=== PATIENT | male | born 1955 | race Caucasian/White ===

== ENCOUNTER → 2021-10-10 09:16 | Outpatient (BNVA) | payer MEDICARE, MEDICAID, SELFPAY | PROVIDERS: PCP Internal Medicine; Visit Provider Podiatrist Foot & Ankle Surgery | DX: L60.3 Nail dystrophy (principal); I73.9 Peripheral vascular disease, unspecified; E11.42 Type 2 diabetes mellitus with diabetic polyneuropathy | CPT/HCPCS: 11721 ==

== ENCOUNTER 2024-03-28 16:07 | Emergency (ER) | payer MEDICARE, MEDICAID, SELFPAY ==
--- NOTE | 2024-03-28 16:07 | ECG_ITS ---
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
[2024-03-28 16:08] VITALS: BP 100/67; PULSE 93; RESP 19; TEMP 36.8; O2SAT 95; BMI 25.1
--- NOTE | 2024-03-28 16:25 | CTR_ITS ---
PROCEDURE INFORMATION: Exam: CT Head Without Contrast Exam date and time: 03/28/2024 4:36 PM Age: 68 years old Clinical indication: Stroke-like symptoms; Altered mental status/memory loss; Additional info: Symptoms of acute stroke TECHNIQUE: Imaging protocol: Computed tomography of the head without contrast. Radiation optimization: All CT scans at this facility use at least one of these dose optimization techniques: automated exposure control; mA and/or kV adjustment per patient size (includes targeted exams where dose is matched to clinical indication); or iterative reconstruction. Other technique: STROKE PROTOCOL was implemented. COMPARISON: No relevant prior studies available. RADIATION DOSE METRICS: Total DLP (mGy-cm): 931.68 FINDINGS: Brain: No hemorrhage. No edema. Broad region of encephalomalacia in the right MCA distribution involving aspects of the right frontal, parietal, and temporal lobes. No mass effect. Cerebral ventricles: No ventriculomegaly. Paranasal sinuses: Visualized sinuses are unremarkable. No fluid levels. Mastoid air cells: Visualized mastoid air cells are well aerated. Bones: Unremarkable. No acute fracture. Soft tissues: Unremarkable. CT/CT head thrombolytic [id number] IMPRESSION: No acute intracranial abnormality. ASSESSMENT: ASPECTS ([place] Stroke Program Early CT Score) is 10.
--- NOTE | 2024-03-28 16:31 | ED_ITS ---
Documented by User: Richard Martini DO 03/31/24 06:21 HPI - Neuro Symptoms/Deficit 2 General: Chief Complaint: Neuro Symptoms/Deficit Stated Complaint: stroke like symptoms Time Seen by Provider: 03/28/24 16:25 History of Present Illness: 68-year-old male presents emergency room he has a known history of previous stroke. The severity did not stroke left him completely paralyzed the left side was some speech deficit and facial droop. This been present for about 6 to 7 years or better. Brought in by EMS from skilled nursing with a slight worsening of his speech per the skilled nursing although patient seems to downplay this patient states he does have a little bit more numbness in the left side of his face but Mili has some degree of numbness he felt it was worse over the last [address] [facility] [address] his last known well at 14 0052 hrs. prior to arrival. Patient states that the numbness of the left side of the lip and face began yesterday afternoon almost 24 hours ago. Associated symptoms: Deny chest pain Related Data Home Medications Medication Instructions Recorded Confirmed acetaminophen 325 mg tablet 650 mg PO Q4H PRN 06/16/19 10/10/21 (Tylenol) aspirin 81 mg tablet,delayed 81 mg PO ONCE 06/16/19 10/10/21 release atorvastatin 20 mg tablet 20 mg PO ONCE 06/16/19 10/10/21 calcium polycarbophil 625 mg 1,250 mg PO BID 06/16/19 10/10/21 tablet (Fiber Laxative (calcium polycarbophil)) fluticasone 250 mcg-salmeterol 50 1 inh inhalation BID 06/16/19 10/10/21 mcg/dose blistr powdr for inhalation (Advair Diskus) gabapentin 300 mg capsule 300 mg PO QAM 06/16/19 10/10/21 gabapentin 600 mg tablet 600 mg PO .hs 06/16/19 10/10/21 levetiracetam 750 mg tablet 750 mg PO BID 06/16/19 10/10/21 metformin 1,000 mg tablet,extended 1,000 mg PO BID 06/16/19 10/10/21 release 24hr (osmotic) metoprolol succinate 25 mg capsule 25 mg PO ONCE 06/16/19 10/10/21 sprinkle, ext. release 24 hr polyethylene glycol 3350 17 17 gm PO BID 06/16/19 10/10/21 gram/dose oral powder (Gavilax) trazodone 50 mg tablet 50 mg PO .at bedtime 06/16/19 10/10/21 venlafaxine 75 mg tablet 150 mg PO ONCE 06/16/19 10/10/21 Allergies Allergy/AdvReac Type Severity Reaction Status Date / Time latex Allergy ALGY-Rash Verified 10/10/21 09:22 Review of Systems 2 Const: Denies: fever(s) or chills Card: Denies: chest pain Resp: Denies: dyspnea GI: Denies: abdominal pain : Denies: dysuria, urinary frequency or urinary urgency Musc: Denies: neck pain or back pain Skin/Breast: Denies: rash PFSH ED 2 PFSH: Medical History Acquired spondylolisthesis Cervico-occipital neuralgia of right side COPD (chronic obstructive pulmonary disease) Gait instability History of stroke in adulthood Lumbar disc disease Onychocryptosis 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 PVD (peripheral vascular disease) Seizure disorder Surgical History H/O cataract extraction H/O total hip arthroplasty LEFT H/O total knee replacement BILATERAL S/P matrixectomy of toe Family History Father Dementia Denies family history of Diabetes CAD (coronary artery disease) Clotting disorder Hyperlipidemia Psychiatric illness Chronic kidney disease (CKD) Suicide Anesthesia complication Bleeding disorder Family history of premature coronary artery disease Lung disease Cancer Hypertension Stroke Social History Smoking and tobacco/nicotine status: never used tobacco/nicotine Alcohol intake: never Substance/Drug Use: never Current occupational status: unemployed NIH stroke score 2 NIHSS: Level Of Consciousness - 1a: 0 Level Of Consciousness Questions - 1b: Both Correct Level Of Consciousness Commands - 1c: Both Correct Best Gaze - 2: Normal Visual Vasquez - 3: No Visual Loss Facial Palsy - 4: N ormal (Changed from baseline with left-sided facial droop) Motor Arm Right - 5: No Drift Motor Arm Left - 5: No Drift (Patient paralyzed on the left side due to previous stroke from several years ago unchanged) Motor Leg Right - 6: No Drift Motor Leg Left - 6: No Drift (Patient paralyzed in the left leg with no effort against gravity unchanged) Limb Ataxia - 7: Absent (Present in the left side from previous stroke not on the right) Sensory - 8: Normal (Loss on the left versus the right side unchanged from baseline) Best Language - 9: No Aphasia Dysarthia - 10: Mild/Moderate Dysarthia Extinction And Inattention - 11: 0 (Difficult to assess because the density of the previous stroke) Score: Total Score: 1 Physical Exam 2 Const: COMMON NORMALS: no acute distress GENERAL APPEARANCE: cooperative and comfortable ORIENTATION/CONSCIOUSNESS: Yes awake, Yes oriented to person, Yes oriented to place and Yes oriented to time HENMT: COMMON NORMALS: normocephalic, atraumatic and hearing grossly normal bilaterally HEAD & SCALP: normocephalic and atraumatic Resp: COMMON NORMALS: normal respiratory effort, No retractions, No use of accessory muscles and clear to auscultation bilaterally AUSCULTATION: clear to auscultation bilaterally Cardio: COMMON NORMALS: regular rate, regular rhythm and No murmurs present (Cardio) RATE: regular rate RHYTHM: regular rhythm GI: COMMON NORMALS: Soft to palpation and No hepatosplenomegaly present A USCULTATION: Yes normoactive bowel sounds PALPATION: Yes Soft to palpation, No Tenderness to palpation present (GI), No Guarding due to palpation present (GI) and Yes No hepatosplenomegaly present Extremity: COMMON NORMALS: normal to inspection, capillary refill normal, no clubbing, cyanosis or edema, no calf tenderness and no pedal edema Neuro: SENSORIUM/ORIENTATION: Yes oriented to person, Yes oriented to place and Yes oriented to time Skin: COMMON NORMALS: no rashes or lesions noted GENERAL SKIN EXAM: no rashes or lesions noted Course 2 Vital Signs: Vital signs: Vital Signs Temperature 98.2 F 03/28/24 16:08 Pulse Rate 76 03/28/24 21:37 Respiratory Rate 19 H 03/28/24 16:08 Blood Pressure 147/76 03/28/24 21:37 Pulse Oximetry 92 03/28/24 21:37 Oxygen Delivery Me thod Room Air 03/28/24 20:14 MDM - Neuro Symptoms/Deficit Medical Decision Making NIH score of 1. Should be noted however there are comments in the NIH scoring that was done today when he arrived and I did not count any of his previous known deficits. We do not have a last known well time that is easily to confirm and establish. Confounded by the fact that he has had a previous very dense stroke. I have seen this patient in the past and family with his previous deficits he does not seem to be significantly off of his baseline except may be slightly in the speech. Discussing with the family they agree this point they do not feel there are any new deficits they do not wish to pursue any treatment. Will discharge patient back to the skilled nursing no change in treatment regimen Medical Records I reviewed the patient's medical records. Lab Data I reviewed the patient's lab results. 03/28/24 15:38 03/28/24 15:[address] 03/28/24 16:25 IMPRESSION: No acute intracranial abnormality. ASSESSMENT: ASPECTS ([place] Stroke Program Early CT Score) is 10. Laboratory Results WBC 5.90 10^3/uL (3.29-11.43) 03/28/24 15:38 RBC 4.14 10^6/uL (3.85-5.65) 03/28/24 15:38 Hgb 13.90 g/dL (11.27-16.99) 03/28/24 15:38 Hct 40.9 % (37-53) 03/28/24 15:38 MCV 98.8 fl (82-101) 03/28/24 15:38 MCH 33.6 pg (27-33) H 03/28/24 15:38 MCHC 34.0 g/dL (30-55) 03/28/24 15:38 RDW 12.1 % (12.1-15.1) 03/28/24 15:38 Plt Count 174 10^3/cmm (157-399) 03/28/24 15:38 MPV 9.2 fL (7.4-10.4) 03/28/24 15:38 Neut % (Auto) 57.3 % 03/28/24 15:38 Lymph % (Auto) 26.1 % 03/28/24 15:38 [place] % (Auto) 10.2 % 03/28/24 15:38 Eos % (Auto) 5.8 % 03/28/24 15:38 Baso % (Auto) 0.3 % 03/28/24 15:38 Neut # (Auto) 3.38 10^3/uL (1.8-7.7) 03/28/24 15:38 Lymph # (Auto) 1.5 10^3/uL (0.8-4.8) 03/28/24 15:38 [place] # (Auto) 0.6 10^3/uL (0.2-0.9) 03/28/24 15:38 Eos # (Auto) 0.3 10^3/uL (0.0-0.8) 03/28/24 15:38 Baso # (Auto) 0.0 10^3/uL (0.0-0.1) 03/28/24 15:38 Nucleated RBC % (auto) 0 % 03/28/24 15:38 Nucleated RBCs # 0.0 /100WBC 03/28/24 15:38 PT 12.20 SECONDS (12.1-14.9) 03/28/24 15:38 INR 0.88 (0.8-1.2) 03/28/24 15:38 APTT 27.1 SECONDS (23.9-36.7) 03/28/24 15:38 Sodium 135 mmol/L (136-145) L 03/28/24 15:38 Potassium 3.9 mmol/L (3.5-5.1) 03/28/24 15:38 Chloride 99 mmol/L (98-107) 03/28/24 15:38 Carbon Dioxide 27 mmol/L (22-29) 03/28/24 15:38 Anion Gap 12.9 (5-19) 03/28/24 15:38 BUN 10 mg/dL (8-23) 03/28/24 15:38 Creatinine 0.8 mg/dL (0.7-1.2) 03/28/24 15:38 GFR Calculation 96.4 mL/min (90-130) 03/28/24 15:38 Glucose 210 mg/dL (65-115) H 03/28/24 15:38 POC Glucose 195 mg/dL (70-110) H 03/28/24 16:26 Calculated Osmolality 285 mOsm/kg (285-295) 03/28/24 15:38 Calcium 8.9 mg/dL (8.5-10.5) 03/28/24 15:38 Total Bilirubin 0.5 mg/dL (0.15-1.2) 03/28/24 15:38 AST 40 U/L (0-40) 03/28/24 15:38 ALT 82 U/L (0-41) H 03/28/24 15:38 Alkaline Phosphatase 88 U/L (40-130) 03/28/24 15:38 Total Protein 7.1 g/dL (6.6-8.7) 03/28/24 15:38 Albumin 3.7 g/dL (3.5-5.2) 03/28/24 15:38 Globulin 3.4 g/dL (1.3-4.6) 03/28/24 15:38 Discharge Plan Discharge Patient Disposition: Home Clinical Impression: Hx of ischemic right MCA stroke Condition: Stable Prescriptions: No Action acetaminophen [Tylenol] 325 mg tablet 650 mg PO Q4H PRN fluticasone propion-salmeterol [Advair Diskus] 250-50 mcg/dose blister with device 1 inh INHALATION BID aspirin 81 mg tablet,delayed release (DR/EC) 81 mg PO ONCE atorvastatin 20 mg tablet 20 mg PO ONCE calcium polycarbophil [Fiber Laxative (ca polycarbo)] 625 mg tablet 1,250 mg PO BID gabapentin 300 mg capsule 300 mg PO QAM gabapentin 600 mg tablet 600 mg PO .hs polyethylene glycol 3350 [Gavilax] 17 gram/dose powder 17 gm PO BID levetiracetam 750 mg tablet 750 mg PO BID metformin 1,000 mg tablet extended release 24hr 1,000 mg PO BID metoprolol succinate 25 mg capsule,sprinkle,ER 24hr 25 mg PO ONCE trazodone 50 mg tablet 50 mg PO .at bedtime venlafaxine 75 mg tablet 150 mg PO ONCE Discharge Orders: Discharge ED (Routine); Ordered 03/28/24 Ordered By: Richard Martini Referrals: James Trevizo DO [Primary Care Provider] - Discharge Diet: Usual diet Discharge Activity: Resume usual activity Patient Instructions: Opioid Safety, Pain Management Activity Restrictions/Additional Instructions: Thank you for choosing [facility] for your healthcare needs today. It is very important that you follow up as instructed or that you return to the Emergency Department should you have concerns or if your condition changes or worsens in any way. You were seen with concern of a stroke. Given the timeframe and your history of previous stroke is difficult to score you for stroke at best your new stroke score might be 1. CT of your head was negative after we discussed it with you you declined to any further treatment at this point it did not appear that you are a candidate for any treatment. Will discharge back to the skilled nursing continue your same medications. Coding Level of Care Code ED Dry End Operator for Chg Fwd Documented by User: Canelo Pagan DO 03/29/24 02:05 HPI - Neuro Symptoms/Deficit 2 General: Chief Complaint: Neuro Symptoms/Deficit Stated Complaint: stroke like symptoms Time Seen by Provider: 03/28/24 16:25 Related Data Home Medications Medication Instructions Recorded Confirmed acetaminophen 325 mg tablet 650 mg PO Q4H PRN 06/16/19 10/10/21 (Tylenol) aspirin 81 mg tablet,delayed 81 mg PO ONCE 06/16/19 10/10/21 release atorvastatin 20 mg tablet 20 mg PO ONCE 06/16/19 10/10/21 calcium polycarbophil 625 mg 1,250 mg PO BID 06/16/19 10/10/21 tablet (Fiber Laxative (calcium polycarbophil)) fluticasone 250 mcg-salmeterol 50 1 inh inhalation BID 06/16/19 10/10/21 mcg/dose blistr powdr for inhalation (Advair Diskus) gabapentin 300 mg capsule 300 mg PO QAM 06/16/19 10/10/21 gabapentin 600 mg tablet 600 mg PO .hs 06/16/19 10/10/21 levetiracetam 750 mg tablet 750 mg PO BID 06/16/19 10/10/21 metformin 1,000 mg tablet,extended 1,000 mg PO BID 06/16/19 10/10/21 release 24hr (osmotic) metoprolol succinate 25 mg capsule 25 mg PO ONCE 06/16/19 10/10/21 sprinkle, ext. 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 PVD (peripheral vascular disease) Seizure disorder Surgical History H/O cataract extraction H/O total hip arthroplasty LEFT H/O total knee replacement BILATERAL S/P matrixectomy of toe Family History Father Dementia Denies family history of Diabetes CAD (coronary artery disease) Clotting disorder Hyperlipidemia Psychiatric illness Chronic kidney disease (CKD) Suicide Anesthesia complication Bleeding disorder Family history of premature coronary artery disease Lung disease Cancer Hypertension Stroke Social History Smoking and tobacco/nicotine status: never used tobacco/nicotine Alcohol intake: never Substance/Drug Use: never Current occupational status: unemployed NIH stroke score 2 Score: Total Score: 1 Course 2 Vital Signs: Vital signs: Vital Signs Temperature 98.2 F 03/28/24 16:08 Pulse Rate 76 03/28/24 21:37 Respiratory Rate 19 H 03/28/24 16:08 Blood Pressure 147/76 03/28/24 21:37 Pulse Oximetry 92 03/28/24 21:37 Oxygen Delivery Me thod Room Air 03/28/24 20:14 MDM - Neuro Symptoms/Deficit Lab Data 03/28/24 15:38 03/28/24 15:[address] 03/28/24 16:25 IMPRESSION: No acute intracranial abnormality. ASSESSMENT: ASPECTS ([place] Stroke Program Early CT Score) is 10. Laboratory Results WBC 5.90 10^3/uL (3.29-11.43) 03/28/24 15:38 RBC 4.14 10^6/uL (3.85-5.65) 03/28/24 15:38 Hgb 13.90 g/dL (11.27-16.99) 03/28/24 15:38 Hct 40.9 % (37-53) 03/28/24 15:38 MCV 98.8 fl (82-101) 03/28/24 15:38 MCH 33.6 pg (27-33) H 03/28/24 15:38 MCHC 34.0 g/dL (30-55) 03/28/24 15:38 RDW 12.1 % (12.1-15.1) 03/28/24 15:38 Plt Count 174 10^3/cmm (157-399) 03/28/24 15:38 MPV 9.2 fL (7.4-10.4) 03/28/24 15:38 Neut % (Auto) 57.3 % 03/28/24 15:38 Lymph % (Auto) 26.1 % 03/28/24 15:38 [place] % (Auto) 10.2 % 03/28/24 15:38 Eos % (Auto) 5.8 % 03/28/24 15:38 Baso % (Auto) 0.3 % 03/28/24 15:38 Neut # (Auto) 3.38 10^3/uL (1.8-7.7) 03/28/24 15:38 Lymph # (Auto) 1.5 10^3/uL (0.8-4.8) 03/28/24 15:38 [place] # (Auto) 0.6 10^3/uL (0.2-0.9) 03/28/24 15:38 Eos # (Auto) 0.3 10^3/uL (0.0-0.8) 03/28/24 15:38 Baso # (Auto) 0.0 10^3/uL (0.0-0.1) 03/28/24 15:38 Nucleated RBC % (auto) 0 % 03/28/24 15:38 Nucleated RBCs # 0.0 /100WBC 03/28/24 15:38 PT 12.20 SECONDS (12.1-14.9) 03/28/24 15:38 INR 0.88 (0.8-1.2) 03/28/24 15:38 APTT 27.1 SECONDS (23.9-36.7) 03/28/24 15:38 Sodium 135 mmol/L (136-145) L 03/28/24 15:38 Potassium 3.9 mmol/L (3.5-5.1) 03/28/24 15:38 Chloride 99 mmol/L (98-107) 03/28/24 15:38 Carbon Dioxide 27 mmol/L (22-29) 03/28/24 15:38 Anion Gap 12.9 (5-19) 03/28/24 15:38 BUN 10 mg/dL (8-23) 03/28/24 15:38 Creatinine 0.8 mg/dL (0.7-1.2) 03/28/24 15:38 GFR Calculation 96.4 mL/min (90-130) 03/28/24 15:38 Glucose 210 mg/dL (65-115) H 03/28/24 15:38 POC Glucose 195 mg/dL (70-110) H 03/28/24 16:26 Calculated Osmolality 285 mOsm/kg (285-295) 03/28/24 15:38 Calcium 8.9 mg/dL (8.5-10.5) 03/28/24 15:38 Total Bilirubin 0.5 mg/dL (0.15-1.2) 03/28/24 15:38 AST 40 U/L (0-40) 03/28/24 15:38 ALT 82 U/L (0-41) H 03/28/24 15:38 Alkaline Phosphatase 88 U/L (40-130) 03/28/24 15:38 Total Protein 7.1 g/dL (6.6-8.7) 03/28/24 15:38 Albumin 3.7 g/dL (3.5-5.2) 03/28/24 15:38 Globulin 3.4 g/dL (1.3-4.6) 03/28/24 15:38 All radiology interpretation(s) finalized by discharge Discharge Plan Discharge Patient Disposition: Home Clinical Impression: Hx of ischemic right MCA stroke Condition: Stable Prescriptions: No Action acetaminophen [Tylenol] 325 mg tablet 650 mg PO Q4H PRN fluticasone propion-salmeterol [Advair Diskus] 250-50 mcg/dose blister with device 1 inh INHALATION BID aspirin 81 mg tablet,delayed release (DR/EC) 81 mg PO ONCE atorvastatin 20 mg tablet 20 mg PO ONCE calcium polycarbophil [Fiber Laxative (ca polycarbo)] 625 mg tablet 1,250 mg PO BID gabapentin 300 mg capsule 300 mg PO QAM gabapentin 600 mg tablet 600 mg PO .hs polyethylene glycol 3350 [Gavilax] 17 gram/dose powder 17 gm PO BID levetiracetam 750 mg tablet 750 mg PO BID metformin 1,000 mg tablet extended release 24hr 1,000 mg PO BID metoprolol succinate 25 mg capsule,sprinkle,ER 24hr 25 mg PO ONCE trazodone 50 mg tablet 50 mg PO .at bedtime venlafaxine 75 mg tablet 150 mg PO ONCE Discharge Orders: Discharge ED (Routine); Ordered 03/28/24 Ordered By: Richard Martini Referrals: James Trevizo, [Primary Care Provider] - Discharge Diet: Usual diet Discharge Activity: Resume usual activity Patient Instructions: Opioid Safety, Pain Management Activity Restrictions/Additional Instructions: Thank you for choosing [facility] for your healthcare needs today. It is very important that you follow up as instructed or that you return to the Emergency Department should you have concerns or if your condition changes or worsens in any way. You were seen with concern of a stroke. Given the timeframe and your history of previous stroke is difficult to score you for stroke at best your new stroke score might be 1. CT of your head was negative after we discussed it with you you declined to any further treatment at this point it did not appear that you are a candidate for any treatment. Will discharge back to the skilled nursing continue your same medications. Coding Level of Care Code ED Dry End Operator for Mckenzie Prieto
[2024-03-28 16:32] LABS: Glucose Point of Care 195 mg/dL (70-110)
[2024-03-28 16:34] LABS: Basophils % 0.3 %; Eosinophils # 0.3 10^3/uL (0.0-0.8); Eosinophils % 5.8 %; Hematocrit 40.9 % (37-53); Lymphocytes # 1.5 10^3/uL (0.8-4.8); Lymphocytes % 26.1 %; Mean Corpuscular Hemoglobin 33.6 pg (27-33); Mean Corpuscular Volume 98.8 fl (82-101); Mean Platelet Volume 9.2 fL (7.4-10.4); Monocytes # 0.6 10^3/uL (0.2-0.9); Monocytes % 10.2 %; Neutrophils # 3.38 10^3/uL (1.8-7.7); Neutrophils % 57.3 %; Nucleated Red Blood Cells % 0 %; Platelet Count 174 10^3/cmm (157-399); Red Blood Count 4.14 10^6/uL (3.85-5.65); Red Cell Distribution Width 12.1 % (12.1-15.1)
[2024-03-28 16:43] LABS: INR 0.88 (0.8-1.2)
[2024-03-28 16:44] LABS: Partial Thromboplastin Time 27.1 SECONDS (23.9-36.7)
[2024-03-28 16:50] LABS: Alanine Aminotransferase 82 U/L (0-41); Albumin Level 3.7 g/dL (3.5-5.2); Alkaline Phosphatase 88 U/L (40-130); Anion Gap 12.9 (5-19); Aspartate Amino Transferase 40 U/L (0-40); Blood Urea Nitrogen 10 mg/dL (8-23); Calcium 8.9 mg/dL (8.5-10.5); Carbon Dioxide 27 mmol/L (22-29); Chloride 99 mmol/L (98-107); Creatinine Clr Calc Pharmacy 98.6499; Globulin 3.4 g/dL (1.3-4.6); Glomerular Filtration Rate 96.4 mL/min (90-130); Glucose 210 mg/dL (65-115); Osmolality Calculated 285 mOsm/kg (285-295); Potassium 3.9 mmol/L (3.5-5.1); Sodium 135 mmol/L (136-145); Total Bilirubin 0.5 mg/dL (0.15-1.2); Total Protein 7.1 g/dL (6.6-8.7)
[2024-03-28] MEDS: sodium chloride 0.9% 500 ML 999 ML IV (17:36)
--- NOTE | 2024-03-28 17:40 | PC.NURSE ---
PT REPORT CALLED BACK [facility]. RECIEVING NURSE DENIED ANY FURTHER QUESTIONS OR CONCERNS. EMS RIDE BEING SET UP BY DIRECTOR OF LABOR RELATIONS.
[2024-03-28 18:00] VITALS: BP 103/66; PULSE 87; O2SAT 92
[2024-03-28 18:30] VITALS: BP 103/65; PULSE 84; O2SAT 92
[2024-03-28 20:14] VITALS: BP 107/72; PULSE 77; O2SAT 91
[2024-03-28 21:37] VITALS: BP 147/76; PULSE 76; O2SAT 92
== END 2024-03-28 21:41 | disposition home or self-care (01) ==
PROVIDERS: Emergency Provider Family Medicine; PCP Internal Medicine
DX: Z86.73 Personal history of transient ischemic attack (TIA), and cerebral infarction without residual deficits (principal); Z79.82 Long term (current) use of aspirin
CPT/HCPCS: 36416; 70450; 80053; 82962; 85025; 85610; 85730; 93005; 99284; J7040

== ENCOUNTER 2024-04-25 10:38 | Emergency (ER) | payer MEDICARE, MEDICAID, SELFPAY ==
[2024-04-25] VITALS (20 sets, daily range): BP systolic 126–143; BP diastolic 73–87; PULSE 79–122; RESP 15–36; TEMP 36.7; O2SAT 94–98; BMI 23.7
--- NOTE | 2024-04-25 10:47 | ECG_ITS ---
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 Measurements Intervals [place] Rate: 119 P: 94 MT: 174 QRS: 114 QRSD: 99 T: 60 QT: 330 QTc: 464 Interpretive Statements SINUS TACHYCARDIA POSSIBLE RIGHT VENTRICULAR HYPERTROPHY [SOME/ALL OF: PROMINENT R IN V1, LATE TRANSITION, RAD, SONAM, SSS] Compared to ECG 03/28/2024 16:07:59 Sinus rhythm no longer present Right-axis deviation no longer present Electronically Signed On 04-25-2024 19:39:13 INSTALLATION SERVICE REPRESENTATIVE by Gerardo Huffman M.D. [id number]
--- NOTE | 2024-04-25 10:49 | XR_ITS ---
WS: [id number] Exam: XR chest 1V portable [id number] Date/Time of Exam: 04/25/2024 10:49 AM Reason For Exam: seizure Comparison 04/19/2017. The lungs are clear and fully inflated. No pleural effusions. Cardiomediastinal silhouette is unremar kable. Chronic changes of bullous emphysema seen in the mid and upper LEFT lung. Bony structures are intact. The chest is somewhat rotated. XR/XR chest 1V portable [id number] IMPRESSION: 1. No acute cardiopulmonary finding.
--- NOTE | 2024-04-25 10:49 | CT_ITS ---
WS: [id number] CT ABDOMEN PELVIS TECHNIQUE: Contrast-enhanced CT of the abdomen and pelvis with coronal and sagittal reformatted image s. CLINICAL INFORMATION: upset stomach , vomiting, seizure today COMPARISON: None. DLP: 597.[address] scans at [facility] use at least one of these dose optimization techniques: automated e xposure control; mA and/or kV adjustment per patient size (includes targeted exams where dose is matc hed to clinical indication); or iterative reconstruction. FINDINGS: Mild diffuse fatty infiltration of the liver. Air-fluid level in the stomach with distention. Tiny es ophageal hiatal hernia. Tiny cyst in the RIGHT hepatic lobe. Normal spleen. Normal portal vein and sp lenic vein. Normal pancreatic parenchymal enhancement. Slight patchy interstitial infiltrates in the LEFT greater than RIGHT lower lobes. Recommend correlation for pneumonia. Adrenal glands are normal. Normal renal parenchymal enhancement. No hydronephrosis. Bilateral renal cysts. Chronic appearing LEF T renal pelvic calculi. No evidence of obstruction. LEFT ureter is decompressed. Normal caliber abdominal aorta. Aortic calcification. Celiac and SMA are patent. Tiny fat-containing umbilical hernia. LEFT KEHINDE degrades some images in the pelvis. Heterotopic ossification about the RIG HT hip and in the RIGHT acetabulum with subchondral cystic changes. Rectal distention with constipati on. No evidence of high-grade small or large bowel obstruction. Normal appendix. CT/CT abdomen pelvis w con* [id number] IMPRESSION: 1. Air-fluid level in the stomach with mild distention. Small esophageal hiata l hernia. Evidence of mild gastritis and duodenitis. 2. Mild diffuse fatty infiltration of the liver. 3. Slight interstitial infiltrates in the LEFT greater than RIGHT lung bases. Recommend correlation for developing pneumonia. 4. Chronic LEFT renal pelvic calculi. No evidence of acute obstruction. 5. Rectal constipation with distention. 6. No other acute acute findings.
--- NOTE | 2024-04-25 10:49 | CT_ITS ---
WS: [id number] CT HEAD TECHNIQUE: Noncontrast CT of the head obtained from the skullbase to the vertex. CLINICAL INFORMATION: seizure COMPARISON: CT 03/28/2024 DLP: 1162.[address] scans at [facility] use at least one of these dose optimization techniques: automated e xposure control; mA and/or kV adjustment per patient size (includes targeted exams where dose is matc hed to clinical indication); or iterative reconstruction. FINDINGS: No evidence of intracranial hemorrhage or mass effect. Ventricular system and basal cisterns are cohen nt. Moderate small vessel changes with moderate parenchymal volume loss. Large chronic area of enceph alomalacia involving the RIGHT frontal and parietal lobes extending into the RIGHT anterior temporal lobe. Ex-vacuo dilatation of the RIGHT lateral ventricle. This is unchanged compared to previous. Vascular calcification. Incidental basal ganglia calcifications. No extra-axial fluid collections. Pa ranasal sinuses are well aerated. Mucosal thickening RIGHT mastoid air cells. LEFT mastoid air cells are well aerated. CT/CT head wo con* [id number] IMPRESSION: 1. No evidence of intracranial hemorrhage or mass effect. 2. Chronic area of encephalomalacia in the RIGHT frontal parietal and temporal lobes likely due to prior infarct in the RIGHT MCA territory. This is unchange d from previous. 3. Vascular calcification. 4. No other acute findings.
--- NOTE | 2024-04-25 10:51 | ED_ITS ---
HPI - Seizure 2 General: Chief Complaint: Seizure Stated Complaint: seizure postictal Time Seen by Provider: 04/25/24 10:41 Source: patient and EMS Mode of arrival: EMS Limitations: no limitations History of Present Illness: HPI Narrative: Patient is a 68-year-old male who presents to the ED today via EMS for evaluation following a seizure. Mother arrived shortly later to provide history. She was reportedly visiting her son at [facility]. She states he was crying and very emotionally upset thinking about a [employer] [place], [place]. He reportedly used to live there. Not sure if he was active duty in the war but he was crying over the [place] atrocities/bombing of the area. Mother states he then stiffened up and went unresponsive . He does have a history of seizures and takes Keppra. EMS states it has been eight years since his last seizure. There was no trauma related to this one as he is bedbound and did not fall out of his bed. There was reportedly some postictal confusion. Upon arrival, patient states he is still at [facility]. He is alert to name and date of . He knows his mother in the room. Mother states he has been complaining of an upset stomach and vomiting over the past week. No diarrhea. No fevers. Vital signs stable upon arrival except for he is sinus tachycardic. Patient later tells me he has not been taking his Keppra due to his upset stomach . complaint: seizure Onset (ago): hour(s) Description of Episode: tonic-clonic movement and post-event confusion -: minutes(s) Witnessed: Yes - by Bystander (his mother who was visiting him at [facility]) Trauma: No Seizure History: Yes Place: Home ([facility]) Possible Precipitating Event: stress (mother states he was crying) and other (later tells me he has not been compliant with his Keppra) Associated symptoms: Reports no associated symptoms; Deny chest pain, fever(s) or syncope Treatments prior to arrival: none Related Data Home Medications Medication Instructions Recorded Confirmed acetaminophen 325 mg tablet 650 mg PO Q4H PRN Pain 06/16/19 04/25/24 (Tylenol) aspirin 81 mg tablet,delayed 81 mg PO ONCE 06/16/19 04/25/24 release atorvastatin 20 mg tablet 20 mg PO ONCE 06/16/19 04/25/24 calcium polycarbophil 625 mg 1,250 mg PO BID 06/16/19 04/25/24 tablet (Fiber Laxative (calcium polycarbophil)) fluticasone 250 mcg-salmeterol 50 1 inh inhalation BID 06/16/19 04/25/24 mcg/dose blistr powdr for inhalation (Advair Diskus) gabapentin 300 mg capsule 300 mg PO QAM 06/16/19 04/25/24 gabapentin 600 mg tablet 600 mg PO .hs 06/16/19 04/25/24 levetiracetam 750 mg tablet 750 mg PO BID 06/16/19 04/25/24 trazodone 50 mg tablet 50 mg PO .at bedtime 06/16/19 04/25/24 albuterol sulfate 90 mcg/actuation 2 puff inhalation Q4H PRN Dyspnea 04/25/24 04/25/24 aerosol inhaler (Ventolin HFA) fluticasone propionate 50 1 spray intranasal DAILY PRN 04/25/24 04/25/24 mcg/actuation nasal allergies spray,suspension (Allergy Relief (fluticasone)) losartan 25 mg tablet 25 mg PO DAILY 04/25/24 04/25/24 meclizine 25 mg tablet 25 mg PO Q6H PRN Nausea And 04/25/24 04/25/24 Vomiting nystatin 100,000 unit/gram topical 1 applic topical QID PRN Skin 04/25/24 04/25/24 powder ([facility]) Irritation olopatadine 0.7 % eye drops 1 drp ophthalmic (eye) DAILY 04/25/24 04/25/24 (Pataday Once Daily Relief) Previous Rx's Medication Instructions Recorded ondansetron 4 mg disintegrating 4 mg PO Q8H PRN nausea and 04/25/24 tablet vomiting #14 tabs pantoprazole 40 mg tablet,delayed 40 mg PO DAILY 4 weeks #28 tabs 04/25/24 release (Protonix) sucralfate 1 gram tablet (Carafate) 1 g PO TID 2 weeks #42 tabs 04/25/24 Allergies Allergy/AdvReac Type Severity Reaction Status Date / Time latex Allergy ALGY-Rash Verified 04/25/24 10:50 Review of Systems 2 Const: Denies: fever(s) Eyes: Denies: change in vision Card: Denies: chest pain, palpitations, syncope or pre-syncope Resp: Denies: dyspnea, productive cough or non-productive cough GI: Reports: abdominal pain and vomiting; Denies: hematemesis, diarrhea, change in bowel habits, hematochezia or melena : Denies: flank pain or dysuria Musc: Denies: neck pain, back pain, extremity pain, extremity swelling, joint pain or joint swelling Skin/Breast: Denies: rash Neuro: Reports: other (chronic L sided deficits, slurred speech, facial droop); Denies: headache(s) PFSH ED 2 PFSH: Medical History Cervico-occipital neuralgia of right side PVD (peripheral vascular disease) Onychocryptosis Gait instability History of stroke in adulthood 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 Seizure disorder Lumbar disc disease Acquired spondylolisthesis COPD (chronic obstructive pulmonary disease) Surgical History S/P matrixectomy of toe H/O total knee replacement BILATERAL H/O total hip arthroplasty LEFT H/O cataract extraction Family History Father Dementia Denies family history of Diabetes CAD (coronary artery disease) Clotting disorder Hyperlipidemia Psychiatric illness Chronic kidney disease (CKD) Suicide Anesthesia complication Bleeding disorder Family history of premature coronary artery disease Lung disease Cancer Hypertension Stroke Social History Smoking and tobacco/nicotine status: never used tobacco/nicotine Alcohol intake: never Substance/Drug Use: never Current occupational status: unemployed Physical Exam 2 Const: COMMON NORMALS: no acute distress and alert GENERAL APPEARANCE: c ooperative and frail appearing ORIENTATION/CONSCIOUSNESS: Yes awake and Yes oriented to person HENMT: COMMON NORMALS: normocephalic, atraumatic and Normal external nose present HEAD & SCALP: normal to inspection, normocephalic and atraumatic F VESTA & SINUS: other (chronic L sided droop) NOSE: Normal external nose present Eye: GENERAL EYE: appearance normal, both eyes and all related structures Neck/C-Spine: COMMON NORMALS: full ROM CERVICAL SPINE: No pain with cervical ROM, No Cervical spine tenderness and No step off deformity Resp: COMMON NORMALS: normal respiratory effort and clear to auscultation bilaterally AUSCULTATION: clear to auscultation bilaterally Cardio: COMMON NORMALS: regular rhythm RATE: tachycardic RHYTHM: regular rhythm GI: COMMON NORMALS: Normal to inspection, nondistended, normoactive bowel sounds present, Soft to palpation, No hepatosplenomegaly present and no masses INSPECTION: Yes normal to inspection PALPATION: Yes Soft to palpation, Yes Tenderness to palpation present (GI) (states it feels sore), No Guarding due to palpation present (GI) and Yes No hepatosplenomegaly present : COMMON NORMALS: Yes no CVA tenderness BLADDER/KIDNEY EXAM: Yes no CVA tenderness Back/Pelvis: COMMON NORMALS: no CVA tenderness and thoracic and lumbar spine normal to inspection Extremity: GENERAL: Yes normal exam except as noted Neuro: BART COMA SCALE: document GCS findings [place] coma scale eye opening: Spontaneous [place] coma scale verbal response: Orientated Bart coma scale motor response: Obey commands [place] coma scale total score: 15 S ENSORIUM/ORIENTATION: Yes alert and Yes oriented to person SPEECH: Other neuro speech findings (chronic speech deficit) GAIT: Yes Other gait observations present (pt is non-ambulatory at baseline from previous CVA) O THER: chronic L sided motor weakness/deficits; no acute focal deficits noted Skin: COMMON NORMALS: no rashes or lesions noted GENERAL SKIN EXAM: no rashes or lesions noted TRAUMA: no lacerations or abrasions Course 2 Vital Signs: Vital signs: Vital Signs Temperature 98.1 F 04/25/24 10:39 Pulse Rate 95 04/25/24 15:48 Respiratory Rate 16 04/25/24 12:30 Blood Pressure 126/73 04/25/24 15:48 Pulse Oximetry 97 04/25/24 15:48 Oxygen Delivery Me thod Room Air 04/25/24 10:39 MDM - Seizure MDM Narrative Medical decision making narrative: Patient is a 68-year-old male here via EMS following a seizure. According to EMS report patient had been compliant with his Keppra although later in his stay patient tells me he has not been taking his Keppra due to his recent upset stomach . Prior to today's seizure, he had not had a seizure in over 8 years. Patient was given an IV loading dose of Keppra here. He will be encouraged to take his medications at [facility]. Will prescribe him Carafate, Pantoprazole, and nausea medications as his CT scan did show evidence of gastritis and duodenitis. Provider through [facility] can have him follow-up with general surgery/GI for evaluation for endoscopy if symptoms do not improve with medications. Upon arrival to the ED today following his seizure he was tachycardic. He had no physical complaints. His blood work did show a gap of over 33 with a lactic of 17.3 likely related to his recent seizure. These were discussed with Dr. Martini. Both of these have completely resolved during his ED stay. CT head and CXR are unremarkable. CT of his abdomen/pelvis showing the above-mentioned gastritis/duodenitis. Other few incidental findings. Did see slight interstitial infiltrates with recommendation for developing pneumonia. He has no symptoms of this. His procalcitonin was normal. Patient was coached many many times during his almost 5-hour ED stay for urine and he refuses. He adamantly refused cath. UTI could not be ruled out because of this. Medical Records Attestation: I reviewed the patient's medical records. Lab Data Attestation: I reviewed the patient's lab results. 04/25/24 10:22 04/25/24 13:50 Labs: Radiology Impressions Abdomen/Pelvis CT 04/25/24 10:49 IMPRESSION: 1. Air-fluid level in the stomach with mild distention. Small esophageal hiatal hernia. Evidence of mild gastritis and duodenitis. 2. Mild diffuse fatty infiltration of the liver. 3. Slight interstitial infiltrates in the LEFT greater than RIGHT lung bases. Recommend correlation for developing pneumonia. 4. Chronic LEFT renal pelvic calculi. No evidence of acute obstruction. 5. Rectal constipation with distention. 6. No other acute acute findings. Chest X-Ray 04/25/24 10:49 IMPRESSION: 1. No acute cardiopulmonary finding. Head CT 04/25/24 10:49 IMPRESSION: 1. No evidence of intracranial hemorrhage or mass effect. 2. Chronic area of encephalomalacia in the RIGHT frontal parietal and temporal lobes likely due to prior infarct in the RIGHT MCA territory. This is unchanged from previous. 3. Vascular calcification. 4. No other acute findings. Laboratory Results WBC 14.55 10^3/uL (3.29-11.43) H 04/25/24 10:22 RBC 4.91 10^6/uL (3.85-5.65) 04/25/24 10:22 Hgb 16.30 g/dL (11.27-16.99) 04/25/24 10:22 Hct 48.5 % (37-53) 04/25/24 10:22 MCV 98.8 fl (82-101) 04/25/24 10:22 MCH 33.2 pg (27-33) H 04/25/24 10:22 MCHC 33.6 g/dL (30-55) 04/25/24 10:22 RDW 12.6 % (12.1-15.1) 04/25/24 10:22 Plt Count 311 10^3/cmm (157-399) 04/25/24 10:22 MPV 8.7 fL (7.4-10.4) 04/25/24 10:22 Neut % (Auto) 37.3 % 04/25/24 10:22 Lymph % (Auto) 49.8 % 04/25/24 10:22 [place] % (Auto) 10.3 % 04/25/24 10:22 Eos % (Auto) 1.6 % 04/25/24 10:22 Baso % (Auto) 0.5 % 04/25/24 10:22 Neut # (Auto) 5.42 10^3/uL (1.8-7.7) 04/25/24 10:22 Lymph # (Auto) 7.2 10^3/uL (0.8-4.8) H 04/25/24 10:22 [place] # (Auto) 1.5 10^3/uL (0.2-0.9) H 04/25/24 10:22 Eos # (Auto) 0.2 10^3/uL (0.0-0.8) 04/25/24 10:22 Baso # (Auto) 0.1 10^3/uL (0.0-0.1) 04/25/24 10:22 Nucleated RBC % (auto) 0 % 04/25/24 10:22 Nucleated RBCs # 0.0 /100WBC 04/25/24 10:22 Sodium 137 mmol/L (136-145) 04/25/24 13:50 Potassium 3.4 mmol/L (3.5-5.1) L 04/25/24 13:50 Chloride 106 mmol/L (98-107) 04/25/24 13:50 Carbon Dioxide 21 mmol/L (22-29) L 04/25/24 13:50 Anion Gap 13.4 (5-19) 04/25/24 13:50 BUN 8 mg/dL (8-23) 04/25/24 13:50 Creatinine 0.8 mg/dL (0.7-1.2) 04/25/24 13:50 GFR Calculation 96.4 mL/min (90-130) 04/25/24 13:50 Glucose 136 mg/dL (65-115) H 04/25/24 13:50 Calculated Osmolality 284 mOsm/kg (285-295) L 04/25/24 13:50 Lactic Acid 17.3 mmol/L (0.5-2.2) H* 04/25/24 10:22 Lactic Acid (Sepsis) 1.4 mmol/L (0.5-2.2) 04/25/24 13:50 Calcium 7.6 mg/dL (8.5-10.5) L 04/25/24 13:50 Total Bilirubin 1.0 mg/dL (0.15-1.2) 04/25/24 13:50 AST 21 U/L (0-40) 04/25/24 13:50 ALT 21 U/L (0-41) 04/25/24 13:50 Alkaline Phosphatase 67 U/L (40-130) 04/25/24 13:50 Ammonia 25 umol/L (16-60) 04/25/24 13:26 Creatine Kinase 64 U/L (39-308) 04/25/24 10:22 Total Protein 6.4 g/dL (6.6-8.7) L 04/25/24 13:50 Albumin 3.5 g/dL (3.5-5.2) 04/25/24 13:50 Globulin 2.9 g/dL (1.3-4.6) 04/25/24 13:50 Procalcitonin 0.06 ng/mL (0-0.5) 04/25/24 10:22 Salicylates < 0.3 mg/dL (3-10) L 04/25/24 10:22 Acetaminophen < 5.0 ug/mL (10-30) L 04/25/24 10:22 Ethyl Alcohol < 10 mg/dL (0-10) 04/25/24 10:22 All radiology interpretation(s) finalized by discharge Discharge Plan Discharge Patient Disposition: Home Clinical Impression: Seizure Gastritis Qualifiers: Gastritis type: unspecified gastritis Chronicity: acute Gastritis bleeding: w ithout bleeding Qualified Code(s): K29.00 - Acute gastritis without bleeding Condition: Stable Prescriptions: New sucralfate [Carafate] 1 gram tablet 1 g PO TID 14 Days Qty: 42 0RF pantoprazole [Protonix] 40 mg tablet,delayed release (DR/EC) 40 mg PO DAILY 28 Days Qty: 28 0RF ondansetron 4 mg tablet,disintegrating 4 mg PO Q8H PRN (Reason: nausea and vomiting) Qty: 14 0RF No Action acetaminophen [Tylenol] 325 mg tablet 650 mg PO Q4H PRN (Reason: Pain) fluticasone propion-salmeterol [Advair Diskus] 250-50 mcg/dose blister with device 1 inh INHALATION BID aspirin 81 mg tablet,delayed release (DR/EC) 81 mg PO ONCE atorvastatin 20 mg tablet 20 mg PO ONCE calcium polycarbophil [Fiber Laxative (ca polycarbo)] 625 mg tablet 1,250 mg PO BID gabapentin 300 mg capsule 300 mg PO QAM gabapentin 600 mg tablet 600 mg PO .hs levetiracetam 750 mg tablet 750 mg PO BID trazodone 50 mg tablet 50 mg PO .at bedtime losartan 25 mg tablet 25 mg PO DAILY meclizine 25 mg tablet 25 mg PO Q6H PRN (Reason: Nausea And Vomiting) nystatin [Nyamyc] 100,000 unit/gram powder 1 applic TOPICAL QID PRN (Reason: Skin Irritation) albuterol sulfate [Ventolin HFA] 90 mcg/actuation HFA aerosol inhaler 2 puff INHALATION Q4H PRN (Reason: Dyspnea) fluticasone propionate [Allergy Relief (fluticasone)] 50 mcg/actuation spray,suspension 1 spray INTRANASAL DAILY PRN (Reason: allergies) Pataday Once Daily Relief 0.7 % drops 1 drp ophthalmic (eye) DAILY Discharge Orders: Discharge ED (Routine); Ordered 04/25/24 Ordered By: Luciana Alva Referrals: Trevizo,James Sánchez, DO [Primary Care Provider] - Patient Instructions: Gastritis (DC), Epilepsy (DC), Duodenitis (ED), Seizures Activity Restrictions/Additional Instructions: As we discussed, you mentioned you have not been compliant with your Keppra due to your upset stomach . Your CT scan today did show evidence of gastritis/duodenitis. I am placing you on Protonix and Carafate to help with this. You have also been given nausea medications to help with your vomiting. It is imperative that you begin taking your Keppra as prescribed otherwise, you are likely to continue experiencing seizures. You need to have the provider through [facility] refer you to general surgery/GI if your abdominal discomfort does not improve on the prescribed medications. They can evaluate you for the need for an endoscopy. We have tried to obtain a urine from you to rule out a urinary tract infection multiple multiple times however you have been unable to give a urine sample. You have adamantly refused catheterization. Infection of your bladder is unable to be definitively ruled out because of this. Coding Level of Care Code ED Compensation Director for Mckenzie Prieto
[2024-04-25 11:12] LABS: Basophils # 0.1 10^3/uL (0.0-0.1); Basophils % 0.5 %; Eosinophils # 0.2 10^3/uL (0.0-0.8); Eosinophils % 1.6 %; Hematocrit 48.5 % (37-53); Lymphocytes # 7.2 10^3/uL (0.8-4.8); Lymphocytes % 49.8 %; Mean Corpuscular HGB Conc 33.6 g/dL (30-55); Mean Corpuscular Hemoglobin 33.2 pg (27-33); Mean Corpuscular Volume 98.8 fl (82-101); Mean Platelet Volume 8.7 fL (7.4-10.4); Monocytes # 1.5 10^3/uL (0.2-0.9); Monocytes % 10.3 %; Neutrophils # 5.42 10^3/uL (1.8-7.7); Neutrophils % 37.3 %; Nucleated Red Blood Cells % 0 %; Platelet Count 311 10^3/cmm (157-399); Red Blood Count 4.91 10^6/uL (3.85-5.65); Red Cell Distribution Width 12.6 % (12.1-15.1); White Blood Count 14.55 10^3/uL (3.29-11.43)
[2024-04-25] MEDS: iohexol 350 mg/mL 500 mL Btl (per mL) IV (11:12)
[2024-04-25 11:25] LABS: Alanine Aminotransferase 25 U/L (0-41); Albumin Level 4.2 g/dL (3.5-5.2); Alkaline Phosphatase 78 U/L (40-130); Anion Gap 33.6 (5-19); Aspartate Amino Transferase 26 U/L (0-40); Blood Urea Nitrogen 8 mg/dL (8-23); Calcium 9.5 mg/dL (8.5-10.5); Carbon Dioxide 11 mmol/L (22-29); Chloride 100 mmol/L (98-107); Globulin 3.8 g/dL (1.3-4.6); Glomerular Filtration Rate 66.8 mL/min (90-130); Glucose 112 mg/dL (65-115); Osmolality Calculated 291 mOsm/kg (285-295); Potassium 3.6 mmol/L (3.5-5.1); Sodium 141 mmol/L (136-145); Total Bilirubin 1.3 mg/dL (0.15-1.2)
[2024-04-25 11:36] LABS: Lactic Sepsis W/Reflex 17.3 mmol/L (0.5-2.2)
[2024-04-25] MEDS: sodium chloride 0.9% 1,000 ML 999 ML IV (11:40)
[2024-04-25 11:41] LABS: Slide Review Slide Review Perform
[2024-04-25 12:01] LABS: Acetaminophen < 5.0 ug/mL (10-30); Alcohol Level < 10 mg/dL (0-10); Salicylate < 0.3 mg/dL (3-10)
[2024-04-25 12:03] LABS: Creatine Phosphokinase 64 U/L (39-308)
[2024-04-25 12:10] LABS: Procalcitonin 0.06 ng/mL (0-0.5)
[2024-04-25 12:58] LABS: Reflex Lactate Order REFLEX LACTIC ORDERD
[2024-04-25 13:56] LABS: Ammonia 25 umol/L (16-60)
[2024-04-25 14:46] LABS: Lactic Acid level (Lactate) 1.4 mmol/L (0.5-2.2)
[2024-04-25 14:58] LABS: Alanine Aminotransferase 21 U/L (0-41); Albumin Level 3.5 g/dL (3.5-5.2); Alkaline Phosphatase 67 U/L (40-130); Anion Gap 13.4 (5-19); Aspartate Amino Transferase 21 U/L (0-40); Blood Urea Nitrogen 8 mg/dL (8-23); Calcium 7.6 mg/dL (8.5-10.5); Carbon Dioxide 21 mmol/L (22-29); Chloride 106 mmol/L (98-107); Creatinine Clr Calc Pharmacy 96.3504; Globulin 2.9 g/dL (1.3-4.6); Glomerular Filtration Rate 96.4 mL/min (90-130); Glucose 136 mg/dL (65-115); Osmolality Calculated 284 mOsm/kg (285-295); Potassium 3.4 mmol/L (3.5-5.1); Sodium 137 mmol/L (136-145); Total Protein 6.4 g/dL (6.6-8.7)
[2024-04-25] MEDS: levETIRAcetam 1,000 MG/100 ML PREMIX 400 MG IV (15:14)
[2024-04-25] MEDS: pantoprazole 40 mg SDV IVP (15:14)
--- NOTE | 2024-04-28 05:15 | DCPLANNER ---
Message sent to ER for follow up- Seizures
== END 2024-04-25 17:44 | disposition home or self-care (01) ==
PROVIDERS: Emergency Provider Physician Assistant; PCP Internal Medicine
DX: R56.9 Unspecified convulsions (principal); K29.00 Acute gastritis without bleeding; J44.9 Chronic obstructive pulmonary disease, unspecified
CPT/HCPCS: 36415; 70450; 71045; 74177; 80053; 80307; 82140; 82550; 83605; 84145; 85025; 87040; 93005; 96365; 96375; 99285; J1953; J2470; J7030

== ENCOUNTER → 2025-01-30 15:34 | Outpatient (BNVA) | payer OTHER, MEDICAID, SELFPAY | PROVIDERS: PCP Internal Medicine; Visit Provider Podiatrist Foot & Ankle Surgery | DX: I73.9 Peripheral vascular disease, unspecified (principal); L60.3 Nail dystrophy; E11.42 Type 2 diabetes mellitus with diabetic polyneuropathy; M25.772 Osteophyte, left ankle; S82.892A Other fracture of left lower leg, initial encounter for closed fracture; X58.XXXA Exposure to other specified factors, initial encounter | CPT/HCPCS: 73630; 99203 ==